=== PATIENT | male | born 1945 | race Hispanic/Latino ===

== ENCOUNTER 2021-06-19 09:24 | Inpatient (IN) | payer MEDICARE, BC ==
[2021-06-19 10:10] LABS: #Eosinphils 0.1 thou/uL (0.0-0.7); #Lymphocytes 0.9 thou/uL (1.20-3.40); #Monocytes 0.6 thou/uL (0.11-0.59); #Neutrophils 6.9 thou/uL (1.40-6.50); %Basophils 0.5 % (0.0-1.0); %Eosinophils 0.8 % (0.0-10.0); %Lymphocytes 10.9 % (21.0-51.0); %Monocytes 6.9 % (0.0-10.0); Hemoglobin 6.7 g/dL (14.0-18.0); Mean Corpuscular HGB CONC 33.5 g/dL (32.0-36.0); Mean Corpuscular Hemoglobin 30.2 pg (27.0-31.0); Mean Platelet Volume 6.7 fL (7.4-10.4); Platelet Count 166 thou/uL (130-400); RBC Distribution Width 13.6 % (11.5-14.5); Red Blood Cell (RBC) Count 2.22 mill/uL (4.70-6.10); White Blood Cell (WBC) Count 8.5 thou/uL (4.8-10.8)
[2021-06-19 10:38] LABS: ALT (SGPT) 13 U/L (8-55); AST (SGOT) 15 U/L (5-34); Albumin 3.4 g/dL (3.4-4.8); Alkaline Phosphatase 63 U/L (40-110); Anion Gap 14 mmol/L (10-20); BUN (Urea Nitrogen) 28 mg/dL (8.4-25.7); Bilirubin, Total 0.3 mg/dL (0.2-1.2); CK (CPK) 70 U/L (30-200); Calc. Creatinine Clearance 0 mL/min (70-130); Calcium 8.2 mg/dL (7.8-10.44); Carbon Dioxide 20 mmol/L (23-31); Chloride 110 mmol/L (98-107); Globulin 2.1 g/dL (2.4-3.5); Glucose 281 mg/dL (83-110); Lipase 30 U/L (8-78); Magnesium 1.3 mg/dL (1.6-2.6); Protein, Total 5.5 g/dL (5.8-8.1); Sodium 139 mmol/L (136-145)
[2021-06-19 10:53] LABS: CKMB 1.4 ng/mL (0-6.6)
[2021-06-19] MEDS ORDERED: Enoxaparin Sodium 80 MG/0.8 ML SYRINGE ONE (11:02)
[2021-06-19] MEDS ORDERED: Nitroglycerin 2% Ointment 1 INCH/1 GM Packet ONE (11:02)
[2021-06-19] MEDS ORDERED: Dextrose 5% in Water 1,000 ML IV PRN (12:45)
[2021-06-19] MEDS ORDERED: HumaLOG 300 UNITS/3 ML VIAL SC PRN ×2 (12:45)
[2021-06-19] MEDS ORDERED: Dextrose 50% Abboject 50 ML SYRINGE SLOW IVP PRN (12:45)
[2021-06-19] MEDS ORDERED: Senokot S 8.6-50 MG TAB PO PRN (12:46)
[2021-06-19] MEDS ORDERED: Acetaminophen 325 MG TAB PO PRN (12:46)
[2021-06-19] MEDS ORDERED: Ondansetron ODT 4 MG TAB PO PRN (12:46)
[2021-06-19] MEDS ORDERED: Ondansetron PF 4 MG/2 ML Vial IVP PRN (12:46)
[2021-06-19] MEDS ORDERED: Sodium Chloride 0.45% 1,000 ML IV SCH (13:00)
[2021-06-19] MEDS ORDERED: Magnesium Sulfate 4 GM in Sodium Chloride 0.9% 250 ML 250 ML IVPB SCH (13:00)
[2021-06-19] MEDS ORDERED: Sodium Chloride 0.9% 1,000 ML IV SCH (13:00)
[2021-06-19 13:41] LABS: Troponin I 0.141 ng/mL (< 0.028)
[2021-06-19 13:49] LABS: Iron 26 ug/dL (65-175); Iron Binding Capacity, Total 324 mcg/dL (261-462)
[2021-06-19 14:04] LABS: SARS-CoV-2 NAA Rapid Test Not Detected (NotDetected)
[2021-06-19 15:25] VITALS: BMI 30.2
[2021-06-19 16:53] LABS: Troponin I 0.204 ng/mL (< 0.028)
[2021-06-19 20:08] LABS: Hemoglobin 8.1 g/dL (14.0-18.0)
[2021-06-19 20:28] LABS: Hemoglobin A1c 7.6 % (4.0-6.0)
[2021-06-20 05:24] LABS: Magnesium 2.3 mg/dL (1.6-2.6)
[2021-06-20 05:30] LABS: #Basophils 0.1 thou/uL (0.0-0.2); #Eosinphils 0.1 thou/uL (0.0-0.7); #Lymphocytes 1.9 thou/uL (1.20-3.40); #Monocytes 0.7 thou/uL (0.11-0.59); #Neutrophils 4.7 thou/uL (1.40-6.50); %Basophils 0.8 % (0.0-1.0); %Eosinophils 1.8 % (0.0-10.0); %Lymphocytes 24.9 % (21.0-51.0); %Monocytes 9.5 % (0.0-10.0); %Neutrophils 63.1 % (42.0-75.0); Hemoglobin 7.8 g/dL (14.0-18.0); Mean Corpuscular Hemoglobin 29.3 pg (27.0-31.0); Mean Corpuscular Volume 88.6 fL (78.0-98.0); Mean Platelet Volume 7.2 fL (7.4-10.4); Platelet Count 182 thou/uL (130-400); RBC Distribution Width 13.4 % (11.5-14.5); Red Blood Cell (RBC) Count 2.66 mill/uL (4.70-6.10); White Blood Cell (WBC) Count 7.5 thou/uL (4.8-10.8)
[2021-06-20] MEDS ORDERED: Iron Sucrose Complex 200 MG in Sodium Chloride 0.9% 100 ML IVPB SCH (07:30)
[2021-06-20] MEDS ORDERED: Ferrous Sulfate 325 MG TAB PO SCH (08:00)
[2021-06-20] MEDS: Atorvastatin Calcium 40 MG TAB PO SCH (08:09)
[2021-06-20] MEDS: levETIRAcetam 500 MG TAB PO SCH ×2 (08:09→21:27)
[2021-06-20] MEDS: Pantoprazole 40 MG VIAL IVP SCH ×2 (08:10→21:28)
[2021-06-20] MEDS ORDERED: Non-Formulary Item 1 EACH (Sertraline Hcl [Sertraline Hcl] 50 MG Tablet) PO SCH (09:00)
[2021-06-20] MEDS ORDERED: Non-Formulary Item 1 EACH (Levetiracetam [Levetiracetam] 1,000 MG Tablet) PO SCH (09:00)
[2021-06-20] MEDS ORDERED: Iron, Sodium Ferric Gluconate 250 MG in Sodium Chloride 0.9% 100 ML IVPB SCH (09:00)
[2021-06-20 19:14] LABS: Hemoglobin 9.8 g/dL (14.0-18.0)
[2021-06-20] MEDS ORDERED: GoLYTELY 4,000 ml Bottle PO SCH (19:30)
[2021-06-21 06:13] LABS: #Eosinphils 0.2 thou/uL (0.0-0.7); #Lymphocytes 1.7 thou/uL (1.20-3.40); #Monocytes 0.8 thou/uL (0.11-0.59); #Neutrophils 5.5 thou/uL (1.40-6.50); %Basophils 0.2 % (0.0-1.0); %Lymphocytes 20.6 % (21.0-51.0); %Monocytes 9.5 % (0.0-10.0); %Neutrophils 66.7 % (42.0-75.0); Hemoglobin 9.3 g/dL (14.0-18.0); Mean Corpuscular HGB CONC 34.2 g/dL (32.0-36.0); Mean Corpuscular Hemoglobin 30.2 pg (27.0-31.0); Mean Corpuscular Volume 88.3 fL (78.0-98.0); Mean Platelet Volume 6.8 fL (7.4-10.4); Platelet Count 230 thou/uL (130-400); RBC Distribution Width 13.5 % (11.5-14.5); Red Blood Cell (RBC) Count 3.08 mill/uL (4.70-6.10); White Blood Cell (WBC) Count 8.2 thou/uL (4.8-10.8)
[2021-06-21 06:33] LABS: Anion Gap 14 mmol/L (10-20); BUN (Urea Nitrogen) 10 mg/dL (8.4-25.7); Calc. Creatinine Clearance 66 mL/min (70-130); Calcium 8.8 mg/dL (7.8-10.44); Carbon Dioxide 24 mmol/L (23-31); Chloride 106 mmol/L (98-107); Glucose 140 mg/dL (83-110); Potassium 4.5 mmol/L (3.5-5.1); Sodium 139 mmol/L (136-145)
[2021-06-21] MEDS ORDERED: Furosemide 40 MG TAB PO SCH (08:30)
[2021-06-21] MEDS ORDERED: Iron, Sodium Ferric Gluconate 250 MG in Sodium Chloride 0.9% 250 ML 250 ML IVPB SCH (09:00)
[2021-06-21] MEDS: Atorvastatin Calcium 40 MG TAB PO SCH (09:24)
[2021-06-21] MEDS: Pantoprazole 40 MG VIAL IVP SCH ×2 (09:25→21:14)
[2021-06-21] MEDS: levETIRAcetam 500 MG TAB PO SCH ×2 (09:25→21:13)
[2021-06-21] MEDS ORDERED: Lidocaine 1% PF 5 ML VIAL ONE (12:09)
[2021-06-21] MEDS ORDERED: PROPOFOL 200 MG/20 ML VIAL ONE (12:09)
[2021-06-21] MEDS: Furosemide 40 MG/4 ML VIAL SLOW IVP SCH (13:54)
[2021-06-21] MEDS: HumaLOG 300 UNITS/3 ML VIAL SC PRN (17:46)
[2021-06-22 05:28] LABS: #Eosinphils 0.1 thou/uL (0.0-0.7); #Lymphocytes 1.4 thou/uL (1.20-3.40); #Monocytes 0.7 thou/uL (0.11-0.59); #Neutrophils 7.4 thou/uL (1.40-6.50); %Basophils 0.2 % (0.0-1.0); %Eosinophils 1.2 % (0.0-10.0); %Lymphocytes 14.2 % (21.0-51.0); %Monocytes 7.4 % (0.0-10.0); Hemoglobin 8.7 g/dL (14.0-18.0); Mean Corpuscular HGB CONC 34.3 g/dL (32.0-36.0); Mean Corpuscular Hemoglobin 30.1 pg (27.0-31.0); Mean Corpuscular Volume 87.9 fL (78.0-98.0); Mean Platelet Volume 6.8 fL (7.4-10.4); Platelet Count 204 thou/uL (130-400); RBC Distribution Width 13.6 % (11.5-14.5); White Blood Cell (WBC) Count 9.7 thou/uL (4.8-10.8)
[2021-06-22] MEDS: Furosemide 40 MG/4 ML VIAL SLOW IVP SCH ×2 (05:34→14:18)
[2021-06-22] MEDS: HumaLOG 300 UNITS/3 ML VIAL SC PRN (05:34)
[2021-06-22 05:52] LABS: Anion Gap 14 mmol/L (10-20); BUN (Urea Nitrogen) 11 mg/dL (8.4-25.7); Calc. Creatinine Clearance 52 mL/min (70-130); Calcium 8.8 mg/dL (7.8-10.44); Carbon Dioxide 26 mmol/L (23-31); Chloride 102 mmol/L (98-107); Glucose 190 mg/dL (83-110); Sodium 138 mmol/L (136-145)
[2021-06-22] MEDS ORDERED: Iron, Sodium Ferric Gluconate 250 MG in Sodium Chloride 0.9% 250 ML 250 ML IVPB SCH (08:45)
[2021-06-22] MEDS: levETIRAcetam 500 MG TAB PO SCH (09:26)
[2021-06-22] MEDS: Atorvastatin Calcium 40 MG TAB PO SCH (09:27)
[2021-06-22] MEDS: Pantoprazole 40 MG VIAL IVP SCH (10:59)
[2021-06-22 13:22] VITALS: BP 136/63; TEMP 98.5
== END 2021-06-22 14:35 | disposition home or self-care (01) | DRG 811 ==
LOC: ERS 09:24 → 2NO 12:01
PROVIDERS: ADMIT Internal Medicine; ATTEND Internal Medicine
PROC: 30233N1 Transfusion of Nonautologous Red Blood Cells into Peripheral Vein, Percutaneous Approach (ICD-10-PCS; principal; 2021-06-19)
PROC: 0W3P8ZZ Control Bleeding in Gastrointestinal Tract, Via Natural or Artificial Opening Endoscopic (ICD-10-PCS; 2021-06-19)
PROC: 0DBL8ZZ Excision of Transverse Colon, Via Natural or Artificial Opening Endoscopic (ICD-10-PCS; 2021-06-19)
PROC: 0DB98ZX Excision of Duodenum, Via Natural or Artificial Opening Endoscopic, Diagnostic (ICD-10-PCS; 2021-06-19)
DX: D50.0 Iron deficiency anemia secondary to blood loss (chronic) (principal); I21.A1 Myocardial infarction type 2; I50.33 Acute on chronic diastolic (congestive) heart failure; I13.0 Hypertensive heart and chronic kidney disease with heart failure and stage 1 through stage 4 chronic kidney disease, or unspecified chronic kidney disease; E87.2 Acidosis; I69.351 Hemiplegia and hemiparesis following cerebral infarction affecting right dominant side; I25.10 Atherosclerotic heart disease of native coronary artery without angina pectoris; E78.00 Pure hypercholesterolemia, unspecified; F32.A Depression, unspecified; E78.5 Hyperlipidemia, unspecified; N18.30 Chronic kidney disease, stage 3 unspecified; E11.22 Type 2 diabetes mellitus with diabetic chronic kidney disease; E83.42 Hypomagnesemia; E86.0 Dehydration; I08.3 Combined rheumatic disorders of mitral, aortic and tricuspid valves; K64.4 Residual hemorrhoidal skin tags; K55.20 Angiodysplasia of colon without hemorrhage; K57.30 Diverticulosis of large intestine without perforation or abscess without bleeding; N42.89 Other specified disorders of prostate; K64.8 Other hemorrhoids; K63.5 Polyp of colon; Z95.2 Presence of prosthetic heart valve; Z90.49 Acquired absence of other specified parts of digestive tract; Z95.1 Presence of aortocoronary bypass graft; Z79.899 Other long term (current) drug therapy; Z79.82 Long term (current) use of aspirin; Z79.84 Long term (current) use of oral hypoglycemic drugs; Z79.4 Long term (current) use of insulin
CPT/HCPCS: 36415; 36416; 36430; 71045; 80048; 80053; 82274; 82550; 82553; 82607; 82728; 82746; 83036; 83540; 83550; 83690; 83735; 84484; 85007; 85025; 85027; 86850; 86900; 86901; 88305; 93005; 93306; 96372; C9113; J1650; J1815; J1940; J2704; J2916; J3475; J3490; J7050; P9016; U0002